=== PATIENT | female | born 1990 | race Caucasian/White ===

== ENCOUNTER 2016-06-18 18:48 | Emergency (ER) | payer SELFPAY | END 2016-06-18 19:15 | disposition left against medical advice (07) | LOC: ER 18:48 | DX: R10.9 Unspecified abdominal pain (principal) ==

== ENCOUNTER 2016-06-18 23:01 | Inpatient (IN) | payer MEDICAID ==
--- NOTE | 2016-06-18 23:49 | ED Physician Chart ---
Chief Complaint/HPI - Patient Information Date Seen:: 06/18/16 Time Seen:: 23:40 Chief Complaint:: RLQ abdominal pain since about 1:30 pm today. History of Present Illness:: Pt was seen by me immediately when she was put in the ER and I was notified about her presence. Pt c/o gradual onset of localized RLQ abdominal pain since about !:30 pm today, characterized as constant and sharp, aggravated with body movement. Slightly elevated body temperature noticed but no definite fever. There is slight decrease in appetite. No N/V/D. Last BM at about 4 pm which was slightly loose. No hematochezia or melena. No urinary symptoms in terms of dysuria, urgency, or frequency with urination. No vaginal bleeding or discharge. LNMP 06/05/16. Allergies:: Allergies Allergy/AdvReac Type Severity Reaction Status Date / Time No Known Allergies Allergy Verified 06/18/16 23:39 Vitals:: Vital Signs - 8 hr 06/18/16 23:05 Temp 99.9 F HR 135 RR 17 BP 135/90 O2 Sat % 99 Historian:: Patient Family MD/PCP:: unknown LMP:: 06/05/2016 Review:: Nurse's Note Reviewed Review of Systems - Review of Systems General/Constitutional: No fever, No chills, No weight loss, No weakness, No diaphoresis, No edema, Loss of appetite (Mild) Skin: No skin lesions, No rash, No bruising Head: No headache, No light-headedness Eyes: No loss of vision, No pain, No diplopia ENT: No earache, No nasal drainage, No sore throat, No tinnitus Neck: No neck pain, No swelling, No thyromegaly, No stiffness, No mass noted Cardio Vascular: No chest pain, No palpitations, No PND, No orthopnea, No edema Pulmonary: No SOB, No cough, No sputum, No wheezing GI: No nausea, No vomiting, No diarrhea, Pain, No melena, No hematochezia, No constipation, No hematemesis G/U: No dysuria, No frequency, No hematuria Kilnman: No vaginal discharge, No abnormal vaginal bleed, No contraction Musculoskeletal: No bone or joint pain, No back pain, No muscle pain Endocrine: No polyuria, No polydipsia Psychiatric: No prior psych history Hematopoietic: No bruising, No lymphadenopathy Allergic/Immuno: No urticaria, No angioedema Neurological: No syncope, No focal symptoms, No weakness, No paresthesia, No headache, No seizure, No dizziness, No confusion, No vertigo Past Medical History - Past Medical History Past Medical History: No significant medical hx Family History: HTN (father, P uncle.), Cancer (PGF) Social History: Non Smoker, Alcohol (rare), No Drug Use, , Other (lives with her .) Employment:: unemployed. Surgical History: None Psychiatricy History: None Medication: Reviewed Family Medical History - Family Member Mother History Unknown: Yes Physical Exam - Physical Examination General/Constitutional: Awake, Well-developed, well-nourished, Alert, No distress, GCS 15, Non-toxic appearing, Ambulatory Other Gen/Cons comments:: Breathes comfortably, speaks clearly, and ambulates without difficulty. Head: Atraumatic Eyes: Lids, conjuctiva normal, PERRL, EOMI Skin: Nl inspection, No rash, No skin lesions, No ecchymosis, Well hydrated, No lymphadenopathy ENMT: External ears, nose nl, Nasal exam nl, Lips, teeth, gums nl, Oropharynx nl , Tonsils nl Neck: Nontender, Full ROM w/o pain, No nuchal rigidity, No mass, No stridor Respiratory: Nl effort/Exclusion, Clear to Auscultation, No Wheeze/Rhonchi/Rales Cardio Vascular: No murmur, gallop, rubs Other Cardio Vascular comments:: regular rhythm with mild tachycardia. GI: No organomegaly, No hernia, Normal BS's, Nondistended, No mass/bruits Other GI comments:: Diffuse tenderness at RLQ. No R. Minimal guarding. No definite McBurney point tenderness. : No CVA tenderness Extremities: No tenderness or effusion, Full ROM, normal strength in all extremities, No edema, Normal digits & nails Neuro/Psych: Alert/oriented (oriented x 3), Mood normal, Normal gait, No focal deficits Labs/Radiology/EKG Results - Lab Results Results: Laboratory Tests 06/18/16 06/18/16 23:25 23:25 Urine Source RANDOM Urine Color STRAW Urine Clarity CLEAR Urine pH 7.0 Ur Specific Byers 1.015 Urine Protein NEGATIVE Urine Glucose (UA) NEGATIVE Urine Ketones 15 H Urine Blood NEGATIVE Urine Nitrate NEGATIVE Urine Bilirubin NEGATIVE Urine Urobilinogen 0.2 Ur Leukocyte Esterase NEGATIVE Urine RBC NONE SEEN Urine WBC NONE SEEN Ur Epithelial Cells NONE SEEN Urine Bacteria NONE SEEN Urine Test NEGATIVE Laboratory Tests 06/18/16 06/18/16 06/19/16 23:25 23:25 00:50 WBC 17.3 H RBC 4.49 Hgb 14.1 Hct 40.5 MCV 90.2 MCH 31.3 H MCHC Differential 34.7 RDW 12.2 Plt Count 301 MPV 9.9 Neutrophils % 87.9 H Lymphocytes % 6.2 L Monocytes % 3.4 Eosinophils % 0.3 Basophils % 2.2 H PT INR PTT (Actin FS) Sodium Potassium Chloride Carbon Dioxide Anion Gap BUN Creatinine Est GFR ( Amer) Est GFR (Non-Af Amer) BUN/Creatinine Ratio Glucose Calcium Total Bilirubin AST ALT Alkaline Phosphatase Total Protein Albumin Globulin Albumin/Globulin Ratio Amylase Lipase Urine Source RANDOM Urine Color STRAW Urine Clarity CLEAR Urine pH 7.0 Ur Specific [place]ers 1.015 Urine Protein NEGATIVE Urine Glucose (UA) NEGATIVE Urine Ketones 15 H Urine Blood NEGATIVE Urine Nitrate NEGATIVE Urine Bilirubin NEGATIVE Urine Urobilinogen 0.2 Ur Leukocyte Esterase NEGATIVE Urine RBC NONE SEEN Urine WBC NONE SEEN Ur Epithelial Cells NONE SEEN Urine Bacteria NONE SEEN Urine Test NEGATIVE 06/19/16 06/19/16 00:50 00:50 WBC RBC Hgb Hct MCV MCH MCHC Differential RDW Plt Count MPV Neutrophils % Lymphocytes % Monocytes % Eosinophils % Basophils % PT 10.3 INR 0.99 PTT (Actin FS) 24.5 L Sodium 136 Potassium 3.6 Chloride 101 Carbon Dioxide 26.0 Anion Gap 12.6 BUN 10 Creatinine 0.6 Est GFR ( Amer) > 60.0 Est GFR (Non-Af Amer) > 60.0 BUN/Creatinine Ratio 16.7 Glucose 105 Calcium 10.4 H Total Bilirubin 0.9 AST 18 ALT 10 Alkaline Phosphatase 45 Total Protein 8.4 H Albumin 5.0 Globulin 3.4 Albumin/Globulin Ratio 1.5 Amylase 26 L Lipase 21 Urine Source Urine Color Urine Clarity Urine pH Ur Specific Byers Urine Protein Urine Glucose (UA) Urine Ketones Urine Blood Urine Nitrate Urine Bilirubin Urine Urobilinogen Ur Leukocyte Esterase Urine RBC Urine WBC Ur Epithelial Cells Urine Bacteria Urine Test - Radiology Results Results: CT abdomen/pelvis without contrast: The appendix is enlarged (9 mm) with surrounding inflammatory change. Findings are consisitent with acute appendicitis. No free air. No abscess. Small amount of free fluid in the pelvis and right pericolic gutter. 2 mm nonobstructing left renal calculus. The liver, spleen, pancreas, gallbladder and kidneys are unremarkable. Official report per Dr. Yonathan Apple, radiologist. ED Septic Shock - . Is Septic Shock (SBP<90, OR Lactate>4 mmol\L) present?: No - <6hrs of presentation: Vital Signs: Vital Signs - 8 hr 06/18/ 23:05 Temp 99.9 F HR 135 RR 17 BP 135/90 O2 Sat % 99 Reassessment (Disposition) - Reassessment Reassessment:: 0115 Pt just had abdominal/pelvic CT without contrast. Report just became available. Pt is to be put on NPO. blood culture, Unasyn IV, etc. ordered. Available lab and CT findings have been reviewed with pt. Management plan has been discussed. Surgery operational communication chief Dr. Lowery is to be contacted. 0123 Case was discussed with Dr. Lowery with H & P, lab and CT findings reviewed. Pt is to be admitted to Med/Surg [facility] under his care. - Diagnosis Diagnosis:: Acute appendicitis, stable. - Patient Disposition Admitted to:: Med/Surg Admitting Medical Physician:: Carlitos Lowery Time:: 01:25 Condition at Disposition:: Stable
[2016-06-19 00:02] LABS: URINE BILIRUBIN NEGATIVE (NEGATIVE); URINE BLOOD NEGATIVE (NEGATIVE); URINE COLOR STRAW; URINE GLUCOSE (UA) NEGATIVE (NEGATIVE); URINE KETONE 15 mg/dL (NEGATIVE); URINE PROTEIN NEGATIVE (NEGATIVE); URINE UROBILINOGEN 0.2 E.U./dL (0.2 - 1.0)
[2016-06-19 00:03] LABS: URINE BACTERIA NONE SEEN /hpf (NONE SEEN); URINE EPITHELIAL CELLS NONE SEEN /lpf (FEW); URINE RBC NONE SEEN /hpf (0-5); URINE WBC NONE SEEN /hpf (0-5)
[2016-06-19 01:04] LABS: % BASOPHILS 2.2 % (0.0-2.0); % EOSINOPHILS 0.3 % (0.0-5.0); % LYMPHOCYTES 6.2 % (20.0-50.0); % MONOCYTES 3.4 % (2.0-10.0); % NEUTROPHILS 87.9 % (40.0-80.0); HEMATOCRIT 40.5 % (35.0-45.0); HEMOGLOBIN 14.1 gm/dL (11.7-15.5); MEAN CELL VOLUME 90.2 fl (81-100); MEAN CORPUSCULAR HEMOGLOBIN 31.3 pg (27.0-31.0); MEAN CORPUSCULAR HGB CONC 34.7 pg (28.0-36.0); MEAN PLATELET VOLUME 9.9 fl; NEUTROPHILE ABSOLUTE 15.1 Th/cmm (1.8-8.0); PLATELET COUNT 301 Th/cmm (150-400); RED BLOOD COUNT 4.49 Mil/cmm (3.80-5.10); RED CELL DISTRIBUTION WIDTH 12.2 % (11.5-20.0); WHITE BLOOD COUNT 17.3 Th/cmm (4.8-10.8)
[2016-06-19] MEDS ORDERED: Ampicillin Sodium/Sulbactam 3 GM in Sodium Chloride 0.9% 100 ML IV ONE (01:08)
[2016-06-19 01:16] LABS: INR 0.99 (0.5-1.4); PROTHROMBIN TIME (TEST) 10.3 SECONDS (9.5-11.5)
[2016-06-19 01:18] LABS: ALB/GLOB RATIO 1.5 (1.0-1.8); ALKALINE PHOSPHATASE 45 U/L (34-104); AMYLASE SERUM 26 U/L (29-103); ANION GAP 12.6 (7.0-16.0); BILIRUBIN,TOTAL 0.9 mg/dL (0.3-1.0); BUN - UREA NITROGEN 10 mg/dL (7-25); BUN/CREATININE RATIO 16.7; CALCIUM SERUM 10.4 mg/dL (8.6-10.3); CHLORIDE 101 mEq/L (98-107); CREATININE - SERUM 0.6 mg/dL (0.6-1.2); GLUCOSE 105 mg/dL (70-105); LIPASE 21 U/L (11-82); POTASSIUM SERUM 3.6 mEq/L (3.5-5.1); SGOT 18 U/L (13-39); SGPT/ALT 10 U/L (7-52); SODIUM SERUM 136 mEq/L (136-145)
[2016-06-19] MEDS: Sodium Chloride 0.9% 1,000 ML IV SCH ×3 (01:33→22:50)
[2016-06-19] MEDS ORDERED: metroNIDAZOLE 500mg/NS 100mL 500 MG/100 ML BAG IV ONE (02:12)
[2016-06-19] MEDS ORDERED: Morphine Sulfate 4 mg/mL 1mL Syr ONE ×2 (02:27→05:30)
[2016-06-19] MEDS: metroNIDAZOLE 500mg/NS 100mL 500 MG/100 ML BAG IV SCH ×3 (02:35→13:01)
[2016-06-19] MEDS: Morphine Sulfate 4 mg/mL 1mL Syr IVP PRN ×3 (02:37→22:36)
--- NOTE | 2016-06-19 03:12 | Admit Criteria Form ---
Admit Criteria Forms - Admit Criteria Procedure: ABDOMINAL PAIN Clinical Indications for Admission to Inpatient Care (Place 'X' for any and all applicable criteria): Admission is indicated for ANY ONE of the following(1)(2)(3)(4)(5): [ ]I. Inpatient admission required rather than observation care (Also use Abdominal Pain: Observation Care, as appropriate) because of ANY ONE of the following: [ ]a) Severe pain requiring acute inpatient management [ ]b) Identification of etiology/finding that requires inpatient care (eg, aortic dissection, free air) [ ]c) Absent bowel sounds with complete ileus(6) [ ]d) Suspected toxic megacolon [ ]e) Severe electrolyte abnormalities requiring inpatient care [ ]f) High fever or infection requiring inpatient admission as indicated by ANY ONE of following(7)(8): [ ] i) Appropriate outpatient or observational care antimicrobial treatment unavailable, not effective, or not feasible [ ] ii) Documented bacteremia [ ] iii) Temperature > 104.9 degrees F (oral) [ ] iv) T >103.1 F (oral) or < 96.8 F(rectal) that does not respond to all emergency treatment measures [ ]g) Signs of intestinal obstruction [B] [ ]h) Hemodynamic instability [ ]i) IV fluid to replace significant ongoing losses (greater than 3 L/m2 per day) (12)(13) [ ]j) Percutaneous or open drainage (eg, abscess, biliary tract ) procedures [ ]k) Parenteral nutrition regimen that must be implemented on inpatient basis [ ]l) Other condition,treatment or monitoring requiring inpatient admission. [ ]II. Peritoneal signs present [X ]III. Surgery needed that cannot be performed on an ambulatory basis. [ ]IV. Evaluation requires patient to not eat or drink for extended period ( eg, more than 24 hours). [ ]V. Contraindications and/or Inappropriate clinical situations for Observational Care in patients with abdominal pain, when ANY ONE of the following is required: [ ]a) Thorough evaluation is required to prevent catastrophic events due to delays in diagnosing (e.g.Mesenteric ischemia) 1,3 [ ]b) Patient with severe pathology or with chronic symptoms unlikely to improve in the ED stay (3) [ ]. General contraindications and/or Inappropriate clinical situations for Observational Care in patients with abdominal pain, when ANY ONE of the following is required: [ ]a) Prediction of prolongation of LOS based on ANY ONE of the following may be considered as a contraindication for observational care 2, 3, 4, 5, 6, 7, 8, 9, 10, 11 [ ]i) Age > 65 yrs. [ ]ii) Patient arriving by ambulance [ ]iii) Patient with high acuity [ ]iv) Patient requiring vital sign monitoring [ ]v) Patient on IV medication [ ]b) Systolic blood pressures 180mmHg 3,12 [ ]c) Patient with altered mental status including delirium and other alteration of consciousness, (3) [ ]d) Patient whose discharge disposition will be to a prison home or rehabilitation home should not be managed in Emergency Department Observation Unit. CMS rule requires 3 days hospital stay before such placement.3,13 [ ]e) Patient with failure to thrive due to broad array of etiologies 3,16,17 [ ]f) Inability to ambulate 3,14 Extended stay beyond goal length of stay may be needed for(2)(3): [ ]a) Persistent abdominal pain with suspected intra-abdominal process [ ]b) Diagnosed condition requiring continued stay (e.g., pancreatitis, complicated diverticulitis) [ ]c) Surgery (e.g., colectomy) The original [facility] content created by [employer] has been revised. The portions of the content which have been revised are identified through the use of italic text or in bold, and [facility] has neither reviewed nor approved the modified material.All other unmodified content is copyright [facility] Please see references footnoted in the original [facility] [employer]. edition 2016 Admit Criteria Met?: Yes
[2016-06-19] MEDS: Ampicillin Sodium/Sulbactam 1.5 GM in Sodium Chloride 0.9% 100 ML IV SCH ×4 (08:29→23:53)
--- NOTE | 2016-06-19 09:40 | Diagnostic Imaging Report ---
CT scan abdomen and pelvis without intravenous contrast HISTORY: Pain Total DLP equals 397 CTDI equals 8.8 The liver exhibits a homogeneous parenchyma. No focal lesions. The spleen appears normal. No focal abnormality seen in the region of the pancreas. The right kidney appears normal. A punctate calculus is seen in the medullary region of the left kidney. No hydronephrosis. Abnormal streaky densities seen in the pericecal region. Suggestion of thickening involving the appendix. Combination of findings suggest inflammatory change (appendicitis). The exam of the pelvis demonstrates a small amount of free fluid. No abnormal soft tissue masses. IMPRESSION: 1. Abnormal changes in the right pericecal region and region of the appendix suggesting inflammatory change (appendicitis). Clinical correlation needed 2. Punctate nonobstructing left renal calculus
[2016-06-19] MEDS ORDERED: Bupivacaine 0.5% W/Ep 10 mL Vial INJ ONE (19:50)
[2016-06-19 19:58] LABS: INR 1.12 (0.5-1.4); PROTHROMBIN TIME (TEST) 11.8 SECONDS (9.5-11.5)
[2016-06-19] MEDS ORDERED: Midazolam 1mg/ml 2 ml vial IV ONE (20:24)
[2016-06-19] MEDS ORDERED: Meperidine 50 mg/mL 1mL Syr ONE (20:24)
[2016-06-19] MEDS ORDERED: Neostigmine 10mg/10mL Vial ONE (21:17)
[2016-06-19] MEDS ORDERED: Meperidine 25 mg/mL 1mL Syr IVP PRN (21:28)
[2016-06-19] MEDS ORDERED: Lactated Ringer 1,000 ML IV SCH (21:30)
--- NOTE | 2016-06-19 21:47 | Operative Report ---
TIME OF OPERATION: 9:13 p.m. PREOPERATIVE DIAGNOSIS: Acute appendicitis. POSTOPERATIVE DIAGNOSIS: Acute appendicitis. OPERATION PERFORMED: Laparoscopic appendectomy. SPECIMENS: Appendix. ANESTHESIA: General and local. ANESTHESIOLOGIST: Dr. Lopez. ESTIMATED BLOOD LOSS: Minimal. SURGEON: Carlitos Lowery M.D. SUMMER INTERNSHIP: None. PROSTHETIC DEVICES: None. COMPLICATIONS: None. DESCRIPTION OF PROCEDURE: After confirming the patient identification, procedure to be done. The patient was placed in supine position. The patient administered general anesthesia, intubated uneventfully. The abdomen was then prepped and draped in usual sterile fashion. Time-out performed. A supraumbilical transverse incision was made with a scalpel. Fascia was incised and entered into the abdominal cavity without injuring the underlying bowel. CO2 pneumoperitoneum was achieved using the open Gibson technique. The patient was placed in laparoscopic appendectomy positioned head down, rotated to left side. A 12 mm port was placed in the right upper quadrant, a 5 mm port was placed in suprapubic area. The appendix was identified. This was retracted upwards and laterally. The mesoappendix was dissected and cauterized until the appendiceal artery was identified. The base of the appendix and the mesoappendix was fired across using the [place] stapler device blue cartridge. Hemostasis ensured. The appendix was detached from the cecum, placed into an Endobag, removed through the supraumbilical port site. Hemostasis ensured. The right lower quadrant was irrigated with normal saline. A right lower quadrant as well as pelvis and pericolic gutter site was then suctioned, irrigated, and hemostasis ensured. The right upper quadrant port was removed. The Robert-Isaac closure system was used to approximate the fascia using 0 Vicryl stitches. The 5 mm port was removed under direct visualization. The pneumoperitoneum was released. The supraumbilical port fascia was approximated with interrupted 0 Vicryl sutures. Skin was approximated using skin jr. Skin and subcutaneous of all port sites were then injected with 0.25% Marcaine with epinephrine. JOB# [id number] [facility]
--- NOTE | 2016-06-19 22:14 | History & Physical ---
HISTORY OF PRESENT ILLNESS: The patient is a 26-year-old white female with a history of IBS, but no other significant medical problems, presented to the Emergency Room complaining of localized right lower quadrant abdominal pain x1-2 days characterized as constant and sharp increasing pain and that is why the patient came to the Emergency Room. She denies any fevers or chills. She denies any nausea, vomiting or diarrhea. She has no similar attacks like this in the past. REVIEW OF SYSTEMS: Otherwise negative except for GI. ALLERGIES: She has seasonal allergies, but no known drug allergies. MEDICATIONS: None. PHYSICAL EXAMINATION: VITAL SIGNS: She is 65 kilograms, BMI is 23.4. She is afebrile. T-max of 98.3. Vital signs otherwise stable. GENERAL: She is in no acute distress, right now resting in bed. Her boyfriend is in bedside. HEENT AND NECK: Within normal limits. There is no neck lymphadenopathy or neck mass or thyromegaly. CHEST: Clear to auscultation bilaterally. There are no crackles, rales, rhonchi or wheezing. CARDIOVASCULAR: Regular rhythm and rate. No murmurs, rubs or gallops. S1, S2 are normal. ABDOMEN: Soft. She has some right lower quadrant tenderness to deep palpation in the McBurney's point. There is no guarding, rebound or generalized peritoneal sign. NEUROVASCULAR EXAMINATION: Otherwise normal. LABORATORY DATA: Her white blood cell count 17.3, H and H is 14.1 and 40.5, platelet count 301. PT is 10.3, PTT is 24.5. Metabolic panel is otherwise normal. She has received Unasyn and Flagyl in the Emergency Room and ongoing care in the hospital. She has received some pain medication as well too. IMPRESSION/PLAN: CT scan shows findings consistent with acute appendicitis. There is inflammatory process in right lower quadrant. She does have leukocytosis, 17.3. She does have right lower quadrant pain and tenderness. Plan is for a laparoscopic possible open appendectomy. She is n.p.o. IV antibiotics have been started. The risks of surgery were explained to the patient in detail. She wishes to proceed with surgery. All questions answered. [facility]# [id number]
[2016-06-20] MEDS: Morphine Sulfate 4 mg/mL 1mL Syr IVP PRN ×4 (01:22→20:53)
[2016-06-20] MEDS: metroNIDAZOLE 500mg/NS 100mL 500 MG/100 ML BAG IV SCH ×3 (05:45→20:55)
[2016-06-20] MEDS: Ampicillin Sodium/Sulbactam 1.5 GM in Sodium Chloride 0.9% 100 ML IV SCH ×3 (06:44→18:06)
[2016-06-20 21:10] LABS: % BASOPHILS 0.5 % (0.0-2.0); % EOSINOPHILS 0.8 % (0.0-5.0); % LYMPHOCYTES 17.7 % (20.0-50.0); % MONOCYTES 9.7 % (2.0-10.0); % NEUTROPHILS 71.3 % (40.0-80.0); HEMOGLOBIN 12.3 gm/dL (11.7-15.5); MEAN CELL VOLUME 91.5 fl (81-100); MEAN CORPUSCULAR HEMOGLOBIN 31.6 pg (27.0-31.0); MEAN CORPUSCULAR HGB CONC 34.6 pg (28.0-36.0); MEAN PLATELET VOLUME 9.6 fl; NEUTROPHILE ABSOLUTE 6.5 Th/cmm (1.8-8.0); RED BLOOD COUNT 3.88 Mil/cmm (3.80-5.10); RED CELL DISTRIBUTION WIDTH 12.2 % (11.5-20.0)
[2016-06-20 21:12] LABS: HEMATOCRIT 35.5 % (35.0-45.0); WHITE BLOOD COUNT 9.1 Th/cmm (4.8-10.8)
[2016-06-20 21:13] LABS: PLATELET COUNT 236 Th/cmm (150-400)
--- NOTE | 2016-06-21 13:15 | Pathology Report ---
[id number] Collection date: 06/19/2016 Surgeon: Dr. Tomy Lowery Specimen Description: Appendix Gross Description: Received in formalin is an 8 cm in length x 0.9 cm in diameter intact appendix with the outer surface showing vascular congestion and slight induration. Sectioning shows an intact appendix wall and lumen with no focal lesions identified. [employer] sections are submitted in two cassettes labeled A1 and A2. Microscopic Description: The histologic sections show appendix with intact wall and mucosa. There is acute inflammation present consisting of neutrophils that extend through the muscular wall and into the adjacent fatty tissue. Diagnosis: Acute appendicitis. [facility]# [id number] [facility]
== END 2016-06-20 23:00 | disposition home or self-care (01) | DRG 710 ==
LOC: ER 23:01 → MSI 06-19 01:25 → ICU 06-19 07:18 → MSI 06-19 17:10
PROVIDERS: ADMIT Surgery; ATTEND Surgery
PROC: 0DTJ4ZZ Resection of Appendix, Percutaneous Endoscopic Approach (ICD-10-PCS; principal; 2016-06-19)
DX: A41.9 Sepsis, unspecified organism (principal); K35.80 Unspecified acute appendicitis; K58.9 Irritable bowel syndrome, unspecified; Z82.49 Family history of ischemic heart disease and other diseases of the circulatory system
CPT/HCPCS: 36415-UA; 80053-TC; 81001-TC; 81003-TC; 81025-TC; 82150-TC; 83690-TC; 85025-TC; 85610-TC; 88304-TC; 90782; 90799; 93005; J0295; J2001; J2250; J2405; J2704; J2710; J7030; V2790; X6024; X6258; Z7610